=== PATIENT | female | born 1995 ===

== ENCOUNTER 2020-08-11 20:04 | Emergency (ER) | payer SELFPAY ==
[~2020-08-11] VITALS: Ht 167.6 cm; Wt 53.2 kg
[2020-08-11 20:05] VITALS: BP 109/69
== END 2020-08-11 22:14 | disposition left against medical advice (07) ==
LOC: M ED 20:04
DX: Z53.21 Procedure and treatment not carried out due to patient leaving prior to being seen by health care provider (principal)